=== PATIENT | female | born 1940 | race Caucasian/White ===

== ENCOUNTER 2016-08-05 20:08 | Inpatient (IN) | payer MEDICARE, BC ==
[~2016-08-05] VITALS: Ht 170.2 cm; Wt 59.0 kg
[2016-08-05 22:00] LABS: ALBUMIN 3.3 g/dL (3.4-5.0); ALKALINE PHOSPHATASE 52 U/L (46-116); ALT (SGPT) 21 U/L (10-68); BILIRUBIN - TOTAL 0.59 mg/dL (0.2-1.3); CALC OSMOLALITY 295 mosm/kg (275-300); CALCIUM 8.5 mg/dL (8.5-10.1); CARBON DIOXIDE 23.3 mmol/L (21.0-32.0); CHLORIDE - SERUM 105 mmol/L (98-107); CREATININE - SERUM 1.2 mg/dL (0.6-1.3); POTASSIUM - SERUM 4.7 mmol/L (3.5-5.1); PROTEIN - SERUM 6.2 g/dL (6.4-8.2); SODIUM 138 mmol/L (136-145); UREA NITROGEN 60 mg/dL (7-18); eGFR NON AFRICAN AMERICAN 46 mL/min (90-120)
[2016-08-05 22:01] LABS: GLUCOSE 146 mg/dL (74-106)
[2016-08-05 22:07] LABS: BASOPHILS 0.2 % (0.0-2.0); EOSINOPHILS 1.5 % (0-7); HEMATOCRIT 33.5 % (36.0-48.0); HEMOGLOBIN 10.8 g/dL (12-16); IMMATURE GRANULOCYTES 0.3 % (0-5); LYMPHOCYTES 22.8 % (15-50); MCH 29.2 pg (26.0-34.0); MCHC 32.2 g/dL (31.0-37.0); MCV 90.5 fL (80.0-100.0); MEAN PLATELET VOLUME 11.3 fL (7.4-10.4); MONOCYTES 4.7 % (2-11); NEUTROPHILS 70.5 % (40-80); RDW 12.9 % (11.5-14.5); WBC 13.5 10x3/uL (4.8-10.8)
[2016-08-05 22:08] LABS: AMYLASE - SERUM 49 U/L (25-115); LIPASE 162 U/L (73-393); PRO BNP 168 pg/mL (0-450)
[2016-08-05 22:11] LABS: TROPONIN-I < 0.017 ng/mL (0.000-0.060)
[2016-08-05 22:11] LABS: APTT 24.3 SECONDS (22.8-39.4); INR 1.12 (0.85-1.17); PLATELET COUNT 288 10x3/uL (130-400); PROTIME 14.2 SECONDS (11.6-15.0)
--- NOTE | 2016-08-06 01:29 | NUR ---
REC'D PATIENT FROM THE ER. IS 75 YR OLD FEMALE. IS ALERT AND ORIENTED X4. DENIES PAIN @ THIS TIME. MUCUS MEMBRANES PINK AND MOIST. DENIES HEARING AND VISION PROBLEMS. PERRLA 4MM. NO JVD. APICAL PULSE 95. HAS A PACEMAKER. LUNGS CLEAR IN ALL LOBES. ABDOMEN SOFT NON TENDER TO TOUCH. BOWELS ACTIVE X4. REPORTED LAST BM 08/05/16. URINE STRAW-COLORED, CLEAR. DENIES PAIN ON URINATION. FULL ROM IN ALL EXTREMITIES. UP ADLIB. CAP REFILL <3 SECS. PERIPHERAL PULSES +2. 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 SKIN WARM, DRY, AND INTACT. 20G TO THE LEFT WRIST. SKIN NON TENTED. IS NPO @ THIS TIME. DENIES ANY FURTHER NEEDS. INTRUCTED TO CALL IF NEEDED ANYTHING. PATIENT VERBALIZED UNDERSTANDING. BED LOW, LOCKED, CALL LIGHT IN REACH.
[2016-08-06 01:37] VITALS: BP 116/44; BMI 20.4
--- NOTE | 2016-08-06 02:00 | NUR ---
EYES CLOSED RESPIRATIONS WITH EASE AND UNLABORED.
[2016-08-06 06:22] LABS: BASOPHILS 0.4 % (0.0-2.0); EOSINOPHILS 0.6 % (0-7); IMMATURE GRANULOCYTES 0.4 % (0-5); LYMPHOCYTES 34.9 % (15-50); MCH 29.7 pg (26.0-34.0); MCHC 33.2 g/dL (31.0-37.0); MCV 89.4 fL (80.0-100.0); MEAN PLATELET VOLUME 10.7 fL (7.4-10.4); MONOCYTES 4.7 % (2-11)
[2016-08-06 06:35] LABS: ALBUMIN 2.7 g/dL (3.4-5.0); ANION GAP 9.9 mmol/L (8-16); BILIRUBIN - TOTAL 0.31 mg/dL (0.2-1.3); CALCIUM 7.9 mg/dL (8.5-10.1); CARBON DIOXIDE 26.5 mmol/L (21.0-32.0); CREATININE - SERUM 0.9 mg/dL (0.6-1.3); MAGNESIUM - SERUM 2.2 mg/dL (1.8-2.4); PHOSPHOROUS 3.7 mg/dL (2.5-4.9); POTASSIUM - SERUM 4.4 mmol/L (3.5-5.1)
[2016-08-06 06:45] LABS: HEMATOCRIT 25.3 % (36.0-48.0); HEMOGLOBIN 8.4 g/dL (12-16); PLATELET COUNT 178 10x3/uL (130-400); RBC 2.83 10x6/uL (4.00-5.40); WBC 8.3 10x3/uL (4.8-10.8)
--- NOTE | 2016-08-06 08:01 | NUR ---
PT. AOX4 RESP EVEN AND NONLABORED PT DENIES NEEDS AT THIS TIME IV TO LEFT WRIST PATENT AND INTACT BED AT LOWEST SETTING CALL LIGHT WITHIN REACH WILL CONTINUE TO MONITOR
[2016-08-06] MEDS ORDERED: PEPCID20 MG PO (13:09)
[2016-08-06] MEDS ORDERED: CELEXA20 MG PO (13:10)
[2016-08-06] MEDS ORDERED: PROPAFENONE HC150 MG PO (13:12)
[2016-08-06] MEDS ORDERED: CEREFOLIN TAB1 TAB PO (13:13)
[2016-08-06] MEDS ORDERED: FLORANEX / LACT1 TAB PO (13:13)
[2016-08-06] MEDS ORDERED: BIOTIN5 MG PO (13:14)
[2016-08-06] MEDS ORDERED: BAYER CHEWABLE81 MG PO (13:14)
[2016-08-06 15:04] VITALS: Ht 170.2 cm; Wt 59.0 kg
[2016-08-06 15:06] LABS: BASOPHILS 0.3 % (0.0-2.0); EOSINOPHILS 1.6 % (0-7); HEMATOCRIT 23.3 % (36.0-48.0); HEMOGLOBIN 7.8 g/dL (12-16); IMMATURE GRANULOCYTES 0.2 % (0-5); LYMPHOCYTES 39.8 % (15-50); MCH 30.2 pg (26.0-34.0); MCHC 33.5 g/dL (31.0-37.0); MCV 90.3 fL (80.0-100.0); MEAN PLATELET VOLUME 10.3 fL (7.4-10.4); MONOCYTES 6.1 % (2-11); PLATELET COUNT 152 10x3/uL (130-400); RBC 2.58 10x6/uL (4.00-5.40); RDW 13.2 % (11.5-14.5)
[2016-08-06 15:08] LABS: WBC 6.2 10x3/uL (4.8-10.8)
--- NOTE | 2016-08-06 16:40 | NUR ---
IV REMOVED FROM RIGHT BREAST PATENT AND INTACT. PT. OUT VIA WHEELCHAIR AT THIS TIME
[2016-08-06 22:38] LABS: HEMATOCRIT 22.9 % (36.0-48.0)
[2016-08-06 22:40] LABS: HEMOGLOBIN 7.3 g/dL (12-16)
--- NOTE | 2016-08-07 04:26 | NUR ---
PATIENT IS RECIEVING BLOOD SINCE 2300 LAST NIGHT. IS RESTING COMFORTABLY IN BED. DENIES NEES AT THIS TIME. IS TO HAVE EGD DONE 08/07/16 GOT CONSENT FORMS SIGNED EARLIER IN THE NIGHT. INTRUCTED PATIENT TO CALL IF NEEDED ANYTHING. VERBALIZED UNDERSTANDING. BED LOW, LOCKED, CALL LIGHT IN REACH.
[2016-08-07 05:08] LABS: BASOPHILS 0.5 % (0.0-2.0); EOSINOPHILS 3.5 % (0-7); IMMATURE GRANULOCYTES 0.3 % (0-5); LYMPHOCYTES 42.4 % (15-50); MCH 29.4 pg (26.0-34.0); MCHC 32.6 g/dL (31.0-37.0); MCV 90.2 fL (80.0-100.0); MEAN PLATELET VOLUME 10.8 fL (7.4-10.4); MONOCYTES 6.3 % (2-11); PLATELET COUNT 157 10x3/uL (130-400); RBC 3.06 10x6/uL (4.00-5.40); RDW 13.9 % (11.5-14.5); WBC 6.3 10x3/uL (4.8-10.8)
[2016-08-07 05:10] LABS: HEMATOCRIT 27.6 % (36.0-48.0)
[2016-08-07 05:26] LABS: ANION GAP 10.3 mmol/L (8-16); CALCIUM 7.9 mg/dL (8.5-10.1); CARBON DIOXIDE 24.5 mmol/L (21.0-32.0); CREATININE - SERUM 0.8 mg/dL (0.6-1.3); POTASSIUM - SERUM 3.8 mmol/L (3.5-5.1)
--- NOTE | 2016-08-07 07:50 | NUR ---
PT AOX4 RESP EVEN AND NONLABORED PT DENIES NEEDS AT THIS TIME IV TO LEFT WRIST PATENT AND INTACT BED AT LOWEST SETTING CALL LIGHT WITHIN REACH
[2016-08-07 12:14] LABS: HEMATOCRIT 29.2 % (36.0-48.0); HEMOGLOBIN 9.6 g/dL (12-16)
[2016-08-07 20:44] LABS: HEMATOCRIT 29.7 % (36.0-48.0); HEMOGLOBIN 9.7 g/dL (12-16)
--- NOTE | 2016-08-07 20:55 | NUR ---
RERCIEVED ON ROUNDS AWAKE AND LAERT ORIENTED X 3 LUNGS CLAER BILATERALLY NO DISTRESS NOTED VOICES ALL NEEDS TO STAFF FAMILY AT BEDSIDE. ALL ADLS PER STAFF CALL LIGHT IN REACH SIDE RAILS UP X 2
--- NOTE | 2016-08-08 02:05 | NUR ---
PT AWAKE AND ALERT ORIENTED X 3 LUNGS CLEAR BILATERALLY. HEART SOUNDS S1S2 NOTED CALL LIGHT IN REACH SIDE RAILS UP X 2
--- NOTE | 2016-08-08 03:16 | NUR ---
PT SEEN. NO COMPLAINTS OF ABD PAIN OR PAIN ANYWHERE AT THE MOMENT. STATES NO BLEEDING EITHER. USING FLARE MAN NEEDED FOR DISCOMFORT. CALL LIGHT IN REACH
[2016-08-08 06:12] LABS: HEMATOCRIT 29.3 % (36.0-48.0); HEMOGLOBIN 9.6 g/dL (12-16)
[2016-08-08 06:35] LABS: CALC OSMOLALITY 286 mosm/kg (275-300); CALCIUM 7.7 mg/dL (8.5-10.1); CHLORIDE - SERUM 111 mmol/L (98-107); CREATININE - SERUM 0.7 mg/dL (0.6-1.3); GLUCOSE 91 mg/dL (74-106); POTASSIUM - SERUM 3.4 mmol/L (3.5-5.1); SODIUM 144 mmol/L (136-145); eGFR NON AFRICAN AMERICAN 86 mL/min (90-120)
[2016-08-08 06:40] LABS: UREA NITROGEN 12 mg/dL (7-18)
[2016-08-08 07:37] VITALS: BP 113/42
[2016-08-08 08:26] VITALS: BP 124/51
[2016-08-08 12:18] VITALS: BP 127/50
[2016-08-08 12:48] LABS: HEMATOCRIT 30.9 % (36.0-48.0)
[2016-08-08 16:29] VITALS: BP 127/50
[2016-08-08 19:00] VITALS: BP 109/553
--- NOTE | 2016-08-08 20:30 | NUR ---
WATCHING TV WIHTOUT COMPLAINTS PAIN. IV INFUSING TO RIGHT FOREARM WIHTOUT REDNESS OR EDEMA. 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
--- NOTE | 2016-08-08 23:43 | NUR ---
PT WAS ASLEEP UNTILL DOOR OPENED AND THEN SHE WAS EASY TO AWAKEN. NO DISTRESS NOTED AND EASY RESPIRATIONS. LEFT ALONE TO SLEEP. THE BED IS LOW, RAILS UP X'S 2 WITH THE CALL LIGHT AT HAND.
--- NOTE | 2016-08-09 01:18 | NUR ---
RESTING QUIETLY. NO DISTRESS NOTED.
[2016-08-09 04:00] VITALS: BP 133/54
--- NOTE | 2016-08-09 04:58 | NUR ---
AWAKE WITH NO COMPLIANTS. CL IN REACH.
[2016-08-09 05:36] LABS: BASOPHILS 0.4 % (0.0-2.0); HEMATOCRIT 29.5 % (36.0-48.0); HEMOGLOBIN 9.8 g/dL (12-16); LYMPHOCYTES 31.8 % (15-50); MCH 30.1 pg (26.0-34.0); MCHC 33.2 g/dL (31.0-37.0); MCV 90.5 fL (80.0-100.0); MEAN PLATELET VOLUME 10.5 fL (7.4-10.4); MONOCYTES 8.9 % (2-11); NEUTROPHILS 53.9 % (40-80); PLATELET COUNT 144 10x3/uL (130-400); RBC 3.26 10x6/uL (4.00-5.40); RDW 13.6 % (11.5-14.5); WBC 4.8 10x3/uL (4.8-10.8)
[2016-08-09 06:04] LABS: CALCIUM 7.9 mg/dL (8.5-10.1); CARBON DIOXIDE 26.3 mmol/L (21.0-32.0); CHLORIDE - SERUM 111 mmol/L (98-107); CREATININE - SERUM 0.7 mg/dL (0.6-1.3); POTASSIUM - SERUM 3.2 mmol/L (3.5-5.1); SODIUM 144 mmol/L (136-145); eGFR NON AFRICAN AMERICAN 86 mL/min (90-120)
[2016-08-09 06:16] LABS: CALC OSMOLALITY 285 mosm/kg (275-300); GLUCOSE 111 mg/dL (74-106); UREA NITROGEN 6 mg/dL (7-18)
--- NOTE | 2016-08-09 07:47 | NUR ---
PT AOX4 RESP EVEN AND NONLABORED PT DENIES NEEDS AT THIS TIME BED AT LOWEST SETTING AND CALL LIGHT WITHIN REACH
[2016-08-09 07:56] VITALS: BP 131/56
[2016-08-09] MEDS ORDERED: PEPCID40 MG PO (08:03)
[2016-08-09] MEDS ORDERED: PROTONIX40 MG PO (08:03)
[2016-08-09] MEDS ORDERED: CARAFATE1 G PO (08:04)
[2016-08-09] MEDS ORDERED: KLOR-CON 1010 MEQ PO (08:05)
--- NOTE | 2016-08-09 12:30 | NUR ---
* Is the patient Alert and Oriented? Yes 0 * How many steps to enter\exit or inside your home? 0 0 * PCP Dr. Johnston 0 * Pharmacy [facility] 0 * Preadmission Environment Home with Family 0 * ADLs Independent 0 * Equipment Rolling Walker 0 * List name and contact numbers for known caregivers / representatives who currently or will assist patient after discharge: Spouse 0 * Additional services required to return to the preadmission environment? No 0 * Can the patient safely return to the preadmission environment? Yes 0 * Has this patient been hospitalized within the prior 30 days at any hospital? No 08/09/2016 12:24 DCP: Discharge Planning Patient Name: YOSELIN CHACON Admission Status: ER Accout number: [id number] Admission Date: 08-05-2016 : 1940 Admission Diagnosis:JALEEL Attending: AV Current LOS: 4 Anticipated DC Date: 08-09-2016 Planned Disposition: Home Primary Insurance: MEDICARE A & B Discharge Planning Comments: CM met with patient & spouse to assess dc plans/needs. They live together in a single level home. Patient reports she was independent with all ADL's & IADL's prior to admission. She has a rolling walker at home but was not using it. At dc, she will return home with her . No needs identified or verbalized at this time. Anticipate DC this afternoon. [employer] Officer: Cher Giles
--- NOTE | 2016-08-09 13:05 | NUR ---
NUTRITION MONITORING & EVAL PROVIDED PT WITH BLAND DIET INFORMATION PER PT REQUEST. RD FOLLOWING
== END 2016-08-09 13:20 | disposition home or self-care (01) | DRG 378 ==
LOC: D.ER 20:08 → D.MS 23:55
PROVIDERS: Internal Medicine Gastroenterology; Surgery; ADMIT Family Medicine
PROC: 0W3P8ZZ Control Bleeding in Gastrointestinal Tract, Via Natural or Artificial Opening Endoscopic (ICD-10-PCS; principal; 2016-08-07 12:00)
DX: K25.4 Chronic or unspecified gastric ulcer with hemorrhage (principal); D62 Acute posthemorrhagic anemia; K29.80 Duodenitis without bleeding; K44.9 Diaphragmatic hernia without obstruction or gangrene; K20.9 Esophagitis, unspecified; I48.91 Unspecified atrial fibrillation; Z95.0 Presence of cardiac pacemaker

== ENCOUNTER 2016-09-25 10:47 | Outpatient (CLI) | payer MEDICARE, BC ==
[~2016-09-25] VITALS: Ht 170.2 cm; Wt 58.6 kg
[~2016-09-25 10:47] MED LIST: BAYER CHEWABLE81 MG PO; BIOTIN5 MG PO; CARAFATE1 G PO; CELEXA20 MG PO; CEREFOLIN TAB1 TAB PO; FLORANEX / LACT1 TAB PO; KLOR-CON 1010 MEQ PO; PEPCID20 MG PO; PEPCID40 MG PO; PROPAFENONE HC150 MG PO; PROTONIX40 MG PO
[2016-09-25 11:10] VITALS: Ht 170.2 cm; Wt 58.6 kg
--- NOTE | 2016-09-25 11:40 | NUR ---
1134- PROLIA INJECTION TO LEFT ARM LOT#:[id number] EXP:11/05
== END 2016-09-25 11:49 | disposition home or self-care (01) ==
LOC: D.OPS 10:47
DX: M81.0 Age-related osteoporosis without current pathological fracture (principal)

== ENCOUNTER → 2016-12-04 15:23 | Outpatient (CLI) | payer MEDICARE, BC ==
[2016-09-25 11:10] VITALS: BMI 20.2
== END | disposition home or self-care (01) ==
LOC: D.CT 15:23 → D.MRI 16:00 → D.CT 16:00
DX: M54.16 Radiculopathy, lumbar region (principal)

== ENCOUNTER 2017-04-02 10:14 | Outpatient (CLI) | payer MEDICARE, BC ==
[~2017-04-02] VITALS: Ht 170.2 cm; Wt 61.8 kg
[2017-04-02 10:45] VITALS: Ht 170.2 cm; Wt 61.8 kg
--- NOTE | 2017-04-02 11:06 | NUR ---
1106 WATER SERVED. TOMASA INSTS REVIEWED RELEASED WITH SPOUSE BOBBY.
== END 2017-04-02 11:07 | disposition home or self-care (01) ==
LOC: D.OPS 10:14
DX: M81.0 Age-related osteoporosis without current pathological fracture (principal)

== ENCOUNTER 2017-10-03 13:46 | Outpatient (CLI) | payer MEDICARE, BC ==
[~2017-10-03] VITALS: Ht 170.2 cm; Wt 60.0 kg
[2017-10-03 14:28] VITALS: BP 119/59; Ht 170.2 cm; Wt 60.0 kg
== END 2017-10-03 15:15 | disposition home or self-care (01) ==
LOC: D.OPS 13:46
DX: M81.0 Age-related osteoporosis without current pathological fracture (principal)

== ENCOUNTER 2018-04-16 11:57 | Outpatient (CLI) | payer MEDICARE, BC ==
[~2018-04-16] VITALS: Ht 170.2 cm; Wt 61.8 kg
[2018-04-16 12:27] VITALS: Ht 170.2 cm; Wt 61.8 kg
== END 2018-04-16 13:25 | disposition home or self-care (01) ==
LOC: D.OPS 11:57
DX: M81.0 Age-related osteoporosis without current pathological fracture (principal); Z01.812 Encounter for preprocedural laboratory examination

== ENCOUNTER 2018-10-15 12:05 | Outpatient (CLI) | payer MEDICARE, BC ==
[~2018-10-15] VITALS: Ht 170.2 cm; Wt 61.8 kg
[2018-10-15 12:27] VITALS: BP 145/79; Ht 170.2 cm; Wt 61.8 kg
== END 2018-10-15 12:32 | disposition home or self-care (01) ==
LOC: D.OPS 12:05
PROVIDERS: ATTEND Family Medicine
DX: M18.0 Bilateral primary osteoarthritis of first carpometacarpal joints (principal)

== ENCOUNTER → 2020-01-29 08:21 | Outpatient (CLI) | payer MEDICARE, BC ==
[2018-10-15 12:27] VITALS: BMI 21.3
--- NOTE | 2020-01-30 11:00 | EC ---
PATIENT:YOSELIN CHACON DATE OF SERVICE: 01/29/20 SEX: F MEDICAL RECORD: [id number] DATE OF : 36 [facility]ATION[facility] AGE OF PATIENT: 79 ADMISSION DATE: 01/29/20 REFERRING PHYSICIAN: INTERPRETING PHYSICIAN: KATELYN FAN MD ECHOCARDIOGRAM REPORT ECHO CHARGES 4 ECHO COMPLETE Date: 01/29/20 CLINICAL DIAGNOSIS: SYNCOPE ECHOCARDIOGRAPHIC MEASUREMENTS (adult normal given) AC root (d.<3.7cm) 3.1 cm LV Septum d (<1.2 cm> 0.7 cm Valve Excursion 1.6 cm LV Septum (systole) 1.4 cm Left Atria (s.<4.0cm> 3.3 cm LVPW d(<1.2cm) 1.0 cm RV (d.<2.3cm) 1.8 cm LVPW (sytole) 1.3 cm LV diastole(<5.6CM) 5.1 cm MV E-F(>70mm/sec) cm LV systole 3.2 cm LVOT Diameter 1.5 cm MV exc.(>10mm) 0.8 cm Est.ejection fraction (50-75%) % DOPPLER: LVIT cm/sec A 103 cm/sec E 69 cm/sec LA cm/sec RVSP 16 mmHg LVOT 75 cm/sec AOP1/2T m/s Asc. Ao 111 cm/sec RVOT 45 cm/sec RA cm/sec PA 53 cm/sec AV Gradient Peak 4.9 mmHg AV Mean 2.9 mmHg AV Area 1.2 cm MV Gradient Peak 5.3 mmHg MV Mean 1.2 mmHg MV Area cm COMMENTS: Street Light Servicer: Tanya [facility] Carpenter/Labor: 3 Dr. [place] TAPE# PACS Pericardial Effusion N DATE OF SERVICE: Adequate 2D echo, color flow imaging, spectral Doppler, and M-Mode. No LVH. LV internal dimension is normal. Wall motion is normal. EF is greater than or equal to 55%. Aortic valve is tricuspid with good valve excursion. Trivial AI by color-flow imaging. Left atrium appears normal at 3.3 cm. Mitral valve shows no prolapse. Trivial MR. Right-sided chambers are grossly normal. Trivial TR. ECHOCARDIOGRAM REPORT [id number] YOSELIN CHACON TRANSINT:[id number] Voice Confirmation ID: [id number] DOCUMENT ID: [id number] KATELYN FAN MD at 1100 CC: [id number] DICTATION DATE: 01/29/2054 VIRTUALIZATION ARCHITECT: 01/29/20 1459 DEP CLI 01/29/20 [id number] [place] [address]
== END | disposition home or self-care (01) ==
LOC: D.ECHO 08:21
PROVIDERS: ATTEND Psychiatry & Neurology Neurology
DX: R55 Syncope and collapse (principal)